=== PATIENT | male | born 1940 | race Caucasian/White ===

== ENCOUNTER 2018-01-29 22:29 | Inpatient (IN) | payer MEDICARE, OTHER ==
[~2018-01-29] VITALS: Ht 185.4 cm; Wt 83.0 kg
[~2018-01-29 22:29] MED LIST: ATOR20TA66 PO; CLOP75TA15 PO; LISI10TA4 PO; METO-395 PO
[2018-01-29] MEDS ORDERED: normal saline 1000ML IV soln IVB ONE (23:00)
[2018-01-29 23:38] LABS: BASOPHILS # (AUTO) 0.1 X10'3 (0-0.2); BASOPHILS % (AUTO) 0.9 % (0-1); EOSINOPHILS % (AUTO) 0.1 % (0-6); HEMATOCRIT 43.5 % (42.0-52.0); HEMOGLOBIN 14.2 g/dl (14.0-17.9); LYMPHOCYTES # (AUTO) 1.5 X10'3 (1.1-4.8); LYMPHOCYTES % (AUTO) 19.6 % (21-51); MEAN CORPUSCULAR HEMOGLOBIN 26.8 PG (27.0-31.0); MEAN CORPUSCULAR HGB CONC 32.5 % (33.0-36.5); MEAN CORPUSCULAR VOLUME 82.4 FL (78-98); MEAN PLATELET VOLUME 7.8 FL (7.4-10.4); MONOCYTES # (AUTO) 0.6 X10'3 (0-0.9); MONOCYTES % (AUTO) 7.1 % (2-12); NEUTROPHILS # (AUTO) 5.6 X10'3 (1.8-7.7); NEUTROPHILS % (AUTO) 72.3 % (42-75); PLATELET COUNT 212 X10'3 (140-440); RED BLOOD COUNT 5.28 X10'6 (4.70-6.10); RED CELL DISTRIBUTION WIDTH 15.7 % (11.5-14.5); WHITE BLOOD COUNT 7.8 X10'3 (4.5-11.0)
[2018-01-29 23:48] LABS: INR 1.1 INR; PARTIAL THROMBOPLASTIN TIME 29 SECONDS (22-32); PROTHROMBIN TIME 11.3 SECONDS (9.0-12.0)
[2018-01-29 23:56] LABS: ALANINE AMINOTRANSFERASE 17 U/L (12-78); ALBUMIN 3.7 G/DL (3.4-5.0); ALKALINE PHOSPHATASE 75 IU/L (46-116); ANION GAP 10 (8-16); CHLORIDE 98 MMOL/L (99-107); CREATININE 1.81 MG/DL (0.60-1.10); LACTIC SEPSIS 1.1 MMOL/L (0.4-2.0); POTASSIUM 4.4 MMOL/L (3.5-5.1); SODIUM 136 MMOL/L (135-145); TOTAL CARBON DIOXIDE 27.8 MMOL/L (24-32); eGFR 37 ML/MIN
[2018-01-30 00:03] LABS: CREATINE KINASE 303 U/L (39-308); ETHANOL < 0.010 GM/DL (0.0-0.010)
[2018-01-30 00:08] LABS: ALBUMIN/GLOBULIN RATIO 0.6 (1.1-1.5); AMMONIA < 10 UMOL/L (11-32); ASPARTATE AMINO TRANSFERASE 27 U/L (10-37); BILIRUBIN,TOTAL 1.4 MG/DL (0.1-1.0); BLOOD UREA NITROGEN 25 MG/DL (7-18); BUN/CREATININE RATIO 13.8 (5.4-32.0); CALCIUM 9.4 MG/DL (8.5-10.1); GLUCOSE 118 MG/DL (70-104); PHOSPHORUS 3.2 MG/DL (2.3-4.5); TOTAL PROTEIN 9.9 G/DL (6.4-8.2)
[2018-01-30 00:09] LABS: ACETAMINOPHEN < 2.0 UG/ML (10-30)
[2018-01-30 01:21] LABS: CLARITY,URINE CLEAR (Clear); COLOR,URINE YELLOW (Yellow); GLUCOSE, URINE NEGATIVE (Neg); KETONES,URINE NEGATIVE (Neg); LEUKOCYTE ESTERASE ,URINE NEGATIVE (Neg); NITRITES, URINE NEGATIVE (Neg); OCCULT BLOOD,URINE TRACE-INTACT (Neg); PROTEIN,URINE 30 mg/dl (Neg); UROBILINOGEN,URINE 0.2 E.U/dL (0.2-1.0)
[2018-01-30 01:28] LABS: UA COLLECTION TYPE CLN CATCH MIDSTREAM
[2018-01-30 01:31] LABS: BACTERIA,URINE NONE SEEN /HPF (Neg); RBC,URINE 0-2 /HPF (0-2); SQUAMOUS EPITHELIAL CELL,UR NONE SEEN /LPF (FEW); URINE AMPHETAMINE SCREEN NEGATIVE (Neg); URINE BARBITUATE SCREEN NEGATIVE (Neg); URINE BENZODIAZEPINES SCREEN NEGATIVE (Neg); URINE CANNABINOID SCREEN NEGATIVE (Neg); URINE COCAINE SCREEN NEGATIVE (Neg); URINE METHADONE SCREEN NEGATIVE (Neg); URINE OPIATE SCREEN NEGATIVE (Neg); URINE PHENCYCLIDINE SCREEN NEGATIVE (Neg); WBC,URINE NONE SEEN /HPF (0-4)
[2018-01-30] MEDS ORDERED: ASPI-1264 PO (02:22)
[2018-01-30] MEDS ORDERED: levoFLOXACIN-Levaquin 750MG/D5 150 ML IV STA (03:19)
[2018-01-30] MEDS ORDERED: magnesium hydroxide 30ml (MOM) UD suspension PO PRN (03:25)
[2018-01-30] MEDS ORDERED: ondansetron/PF 4mg/2ml inj IV PRN (03:25)
[2018-01-30] MEDS ORDERED: mag hydrox/Alum hydrox/simeth 30ml oral suspension PO PRN (03:25)
[2018-01-30] MEDS ORDERED: acetaminophen 325mg tablet PO PRN (03:25)
[2018-01-30] MEDS ORDERED: docusate sod 100mg capsule PO PRN (03:25)
[2018-01-30 07:30] VITALS: BP 139/86
[2018-01-30] MEDS: aspirin 325mg tablet PO SCH (09:05)
[2018-01-30 09:14] LABS: C DIFF ANTIGEN NEGATIVE (NEGATIVE); C DIFF SPECIMEN=DIARRHEA? ACCEPTABLE; C DIFFICILE TOXINS A&B NEGATIVE (Neg)
[2018-01-30 09:32] LABS: OCCULT BLOOD STOOL NEGATIVE (Neg)
[2018-01-30 10:00] VITALS: BP 126/76
[2018-01-30 15:20] VITALS: BP 165/95
[2018-01-30 16:23] VITALS: BP 123/88
[2018-01-30 18:00] VITALS: BP 128/69
[2018-01-30 22:00] VITALS: BP 136/78
[2018-01-31 06:00] VITALS: BP 147/86
[2018-01-31] MEDS: aspirin 325mg tablet PO SCH (08:24)
[2018-01-31 08:37] LABS: BASOPHILS % (AUTO) 0.7 % (0-1); EOSINOPHILS % (AUTO) 0.1 % (0-6); HEMATOCRIT 41.7 % (42.0-52.0); HEMOGLOBIN 13.6 g/dl (14.0-17.9); LYMPHOCYTES # (AUTO) 1.5 X10'3 (1.1-4.8); LYMPHOCYTES % (AUTO) 20.9 % (21-51); MEAN CORPUSCULAR HGB CONC 32.7 % (33.0-36.5); MEAN CORPUSCULAR VOLUME 82.5 FL (78-98); MEAN PLATELET VOLUME 8.3 FL (7.4-10.4); MONOCYTES # (AUTO) 0.6 X10'3 (0-0.9); MONOCYTES % (AUTO) 7.9 % (2-12); NEUTROPHILS # (AUTO) 4.9 X10'3 (1.8-7.7); NEUTROPHILS % (AUTO) 70.4 % (42-75); PLATELET COUNT 204 X10'3 (140-440); RED BLOOD COUNT 5.06 X10'6 (4.70-6.10); RED CELL DISTRIBUTION WIDTH 15.4 % (11.5-14.5)
[2018-01-31 08:41] LABS: ALBUMIN 3.1 G/DL (3.4-5.0); ANION GAP 9 (8-16); BLOOD UREA NITROGEN 25 MG/DL (7-18); BUN/CREATININE RATIO 15.6 (5.4-32.0); CALCIUM 9.2 MG/DL (8.5-10.1); CHLORIDE 98 MMOL/L (99-107); POTASSIUM 4.1 MMOL/L (3.5-5.1); SODIUM 134 MMOL/L (135-145); TOTAL CARBON DIOXIDE 26.9 MMOL/L (24-32); eGFR 42 ML/MIN
[2018-01-31 08:54] LABS: GLUCOSE 129 MG/DL (70-104)
[2018-01-31 10:00] VITALS: BP 145/74
[2018-01-31 18:00] VITALS: BP 154/84
[2018-01-31 22:00] VITALS: BP 144/81
[2018-02-01] MEDS: acetaminophen 325mg tablet PO PRN ×2 (02:21→18:58)
[2018-02-01 06:30] VITALS: BP 128/78
[2018-02-01 07:03] LABS: ANION GAP 13 (8-16); BLOOD UREA NITROGEN 31 MG/DL (7-18); BUN/CREATININE RATIO 19.7 (5.4-32.0); CALCIUM 9.2 MG/DL (8.5-10.1); CHLORIDE 99 MMOL/L (99-107); CREATININE 1.57 MG/DL (0.60-1.10); POTASSIUM 4.1 MMOL/L (3.5-5.1); SODIUM 134 MMOL/L (135-145); TOTAL CARBON DIOXIDE 22.3 MMOL/L (24-32); eGFR 43 ML/MIN
[2018-02-01 07:04] LABS: BASOPHILS % (AUTO) 0.7 % (0-1); EOSINOPHILS % (AUTO) 0.9 % (0-6); HEMATOCRIT 41.2 % (42.0-52.0); HEMOGLOBIN 13.5 g/dl (14.0-17.9); LYMPHOCYTES # (AUTO) 1.5 X10'3 (1.1-4.8); LYMPHOCYTES % (AUTO) 28.7 % (21-51); MEAN CORPUSCULAR HGB CONC 32.8 % (33.0-36.5); MEAN CORPUSCULAR VOLUME 82.4 FL (78-98); MEAN PLATELET VOLUME 8.8 FL (7.4-10.4); MONOCYTES # (AUTO) 0.5 X10'3 (0-0.9); MONOCYTES % (AUTO) 9.9 % (2-12); NEUTROPHILS # (AUTO) 3.1 X10'3 (1.8-7.7); NEUTROPHILS % (AUTO) 59.8 % (42-75); PLATELET COUNT 204 X10'3 (140-440); RED CELL DISTRIBUTION WIDTH 15.2 % (11.5-14.5); WHITE BLOOD COUNT 5.2 X10'3 (4.5-11.0)
[2018-02-01 07:05] LABS: GLUCOSE 117 MG/DL (70-104)
[2018-02-01] MEDS: aspirin 325mg tablet PO SCH (07:46)
[2018-02-01 11:06] VITALS: BP_SYST 116; BP_SYST 138; BP_DIAS 75; BP_DIAS 99
[2018-02-01 18:00] VITALS: BP 157/88
[2018-02-01 22:00] VITALS: BP 138/75
[2018-02-02] MEDS: acetaminophen 325mg tablet PO PRN (05:05)
[2018-02-02 05:31] LABS: BASOPHILS % (AUTO) 0.4 % (0-1); EOSINOPHILS # (AUTO) 0.1 X10'3 (0-0.9); HEMOGLOBIN 13.1 g/dl (14.0-17.9); LYMPHOCYTES # (AUTO) 1.1 X10'3 (1.1-4.8); LYMPHOCYTES % (AUTO) 23.8 % (21-51); MEAN CORPUSCULAR HEMOGLOBIN 26.9 PG (27.0-31.0); MEAN CORPUSCULAR HGB CONC 32.7 % (33.0-36.5); MEAN CORPUSCULAR VOLUME 82.3 FL (78-98); MEAN PLATELET VOLUME 8.8 FL (7.4-10.4); MONOCYTES # (AUTO) 0.5 X10'3 (0-0.9); MONOCYTES % (AUTO) 11.2 % (2-12); NEUTROPHILS % (AUTO) 61.6 % (42-75); PLATELET COUNT 221 X10'3 (140-440); RED BLOOD COUNT 4.86 X10'6 (4.70-6.10); RED CELL DISTRIBUTION WIDTH 15.1 % (11.5-14.5); WHITE BLOOD COUNT 4.8 X10'3 (4.5-11.0)
[2018-02-02 05:35] LABS: ALBUMIN 2.9 G/DL (3.4-5.0); ANION GAP 12 (8-16); BLOOD UREA NITROGEN 33 MG/DL (7-18); BUN/CREATININE RATIO 23.6 (5.4-32.0); CALCIUM 8.8 MG/DL (8.5-10.1); CHLORIDE 100 MMOL/L (99-107); GLUCOSE 123 MG/DL (70-104); POTASSIUM 3.7 MMOL/L (3.5-5.1); SODIUM 135 MMOL/L (135-145); TOTAL CARBON DIOXIDE 22.6 MMOL/L (24-32); eGFR 49 ML/MIN
[2018-02-02 07:20] VITALS: BP 106/70
[2018-02-02] MEDS: aspirin 325mg tablet PO SCH (08:45)
== END 2018-02-02 12:20 | disposition home health service (06) | DRG 683 ==
LOC: ER 22:29 → ED HOLD 01-30 03:25 → ORTHO 4S 01-30 07:40
PROVIDERS: ADMIT Internal Medicine; ATTEND Internal Medicine
DX: N17.9 Acute kidney failure, unspecified (principal); G93.40 Encephalopathy, unspecified; B34.9 Viral infection, unspecified; K70.30 Alcoholic cirrhosis of liver without ascites; N18.3 Chronic kidney disease, stage 3 (moderate); E78.5 Hyperlipidemia, unspecified; E03.9 Hypothyroidism, unspecified; E86.0 Dehydration; F03.90 Unspecified dementia, unspecified severity, without behavioral disturbance, psychotic disturbance, mood disturbance, and anxiety; I34.0 Nonrheumatic mitral (valve) insufficiency; I07.1 Rheumatic tricuspid insufficiency; I12.9 Hypertensive chronic kidney disease with stage 1 through stage 4 chronic kidney disease, or unspecified chronic kidney disease; I25.10 Atherosclerotic heart disease of native coronary artery without angina pectoris; K52.9 Noninfective gastroenteritis and colitis, unspecified; Z95.5 Presence of coronary angioplasty implant and graft; Z79.82 Long term (current) use of aspirin; Z86.73 Personal history of transient ischemic attack (TIA), and cerebral infarction without residual deficits; Z87.11 Personal history of peptic ulcer disease
CPT/HCPCS: 36415; 70450; 71045; 80048; 80053; 80305; 80320; 80329; 81001; 82140; 82272; 82550; 82948; 83605; 83735; 84100; 84439; 84443; 84480; 84484; 85025; 85610; 85730; 87040; 87045; 87046; 87070; 87324; 87449; 89055; 93005; 93306; 96360; 97110; 97116; 97161; 97530; 99285; A4353; A6213; J1956

== ENCOUNTER 2018-02-06 12:11 | Outpatient (CLI) | payer MEDICARE, OTHER ==
[~2018-02-06 12:11] MED LIST changes: +ASPI-1264 PO; -ATOR20TA66 PO; -CLOP75TA15 PO; -LISI10TA4 PO; -METO-395 PO
== END 2018-02-06 23:59 | disposition home or self-care (01) ==
LOC: CARD DIAG 12:11
DX: I65.23 Occlusion and stenosis of bilateral carotid arteries (principal); I10 Essential (primary) hypertension; Z79.82 Long term (current) use of aspirin; Z72.89 Other problems related to lifestyle; F17.200 Nicotine dependence, unspecified, uncomplicated; Z86.73 Personal history of transient ischemic attack (TIA), and cerebral infarction without residual deficits
CPT/HCPCS: 93880

== ENCOUNTER 2018-11-24 13:46 | Day surgery (SDC) | payer MEDICARE, OTHER ==
[~2018-11-24] VITALS: Ht 180.3 cm; Wt 77.1 kg
[2018-11-24] VITALS (7 sets, daily range): BP systolic 122–143; BP diastolic 70–88
[~2018-11-24 13:46] MED LIST changes: +ACET-2119 PO; +AMLO2.5T2 PO; -ASPI-1264 PO; +ATOR10TA70 PO; +BISA10SU60 RC; +CIPR-260 PO; +CLOP75TA15 PO; +FOLI1TAB16 PO; +HYDR-4353 PO; +MAG355OR18 PO; +MAGN400O6 PO; +MULT-933 PO; +NA P133E4 RC; +RIVA15TA PO; +THIA100T73 PO; +acetaminophen 325mg tablet PO ONE; +cefazolin/dext.iso 2gm/100 ML IV ONE; +celeCOXIB 100mg capsule PO ONE; +famotidine 20mg tablet PO ONE; +gabapentin 300mg capsule PO ONE; +metoclopramide 5 mg/ml inj IV ONE; +oxyCODONE SR 10mg (sust. release) tab -2 tabs (20mg) PO ONE; +ringers solution, lacted 1,000 ML IV SCH; +tranexamic acid inj. 1,000 MG in normal saline 100 ML IV ONE; +vancomycin inj 1,500 MG in normal saline 300ml IV soln IV ONE
[2018-11-24] MEDS ORDERED: ringers solution, lacted 1,000 ML IV SCH (14:11)
[2018-11-24] MEDS ORDERED: hydrALAZINE 20mg/ml inj. IV PRN (14:15)
[2018-11-24] MEDS ORDERED: ondansetron/PF 4mg/2ml inj IV PRN (14:15)
[2018-11-24] MEDS ORDERED: labetalol 20mg/4ml (5mg/ml) syringe IV PRN (14:15)
[2018-11-24] MEDS ORDERED: fentaNYL/PF 50MCG/1 ML 2ML syringe IV PRN ×2 (14:15)
[2018-11-24] MEDS ORDERED: morphine 4 MG/ML inj SYRINge IV PRN ×2 (14:15)
[2018-11-24] MEDS ORDERED: fentaNYL/PF 50MCG/1 ML 2ML syringe ONE ×2 (14:19→16:03)
[2018-11-24] MEDS ORDERED: etomidate 2mg/ml inj. ONE (14:20)
[2018-11-24] MEDS ORDERED: midazolam 2 mg/2 ml injection ONE ×2 (14:20→16:03)
[2018-11-24] MEDS ORDERED: vancomycin 1,000mg inj ONE (14:53)
[2018-11-24] MEDS ORDERED: LIDOcaine 1% 30ml preserv. free vial ONE (15:33)
[2018-11-24 15:40] LABS: BASOPHILS # (AUTO) 0.1 X10'3 (0-0.2); EOSINOPHILS # (AUTO) 0.2 X10'3 (0-0.9); EOSINOPHILS % (AUTO) 3.4 % (0-6); LYMPHOCYTES # (AUTO) 1.7 X10'3 (1.1-4.8); LYMPHOCYTES % (AUTO) 27.9 % (21-51); MEAN CORPUSCULAR HEMOGLOBIN 27.1 PG (27.0-31.0); MEAN CORPUSCULAR HGB CONC 33.2 g/dL (33.0-36.5); MEAN CORPUSCULAR VOLUME 81.8 FL (78-98); MEAN PLATELET VOLUME 7.6 FL (7.4-10.4); MONOCYTES # (AUTO) 0.5 X10'3 (0-0.9); MONOCYTES % (AUTO) 7.6 % (2-12); NEUTROPHILS # (AUTO) 3.7 X10'3 (1.8-7.7); NEUTROPHILS % (AUTO) 60.1 % (42-75); PRE OP HEMATOCRIT 28.4 % (42.0-52.0); PRE OP PLATELET COUNT 298 X10'3 (140-440); RED BLOOD COUNT 3.48 X10'6 (4.70-6.10); RED CELL DISTRIBUTION WIDTH 16.7 % (11.5-14.5)
[2018-11-24 15:49] LABS: PRE OP HEMOGLOBIN 9.4 g/dL (14.0-17.9)
[2018-11-24 15:51] LABS: PRE OP INR 1.2 INR; PRE OP PROTIME 12.1 SECONDS (9.0-12.0)
[2018-11-24 15:56] LABS: ALBUMIN 3.6 G/DL (3.4-5.0); ALBUMIN/GLOBULIN RATIO 0.7 (1.1-1.5); ALKALINE PHOSPHATASE 119 IU/L (46-116); BLOOD UREA NITROGEN 27 MG/DL (7-18); BUN/CREATININE RATIO 19.7 (5.4-32.0); CALCIUM 9.5 MG/DL (8.5-10.1); CHLORIDE 107 MMOL/L (99-107); CREATININE 1.37 MG/DL (0.60-1.10); PRE OP ALT 20 U/L (30-65); PRE OP ANION GAP 7 (8-16); PRE OP AST 20 U/L (10-37); PRE OP BILIRUB, TOTAL 0.4 MG/DL (0.0-1.0); PRE OP GLUCOSE 87 MG/DL (70-104); PRE OP POTASSIUM 4.4 MMOL/L (3.4-5.1); PRE OP SODIUM 141 MMOL/L (135-145); TOTAL CARBON DIOXIDE 26.8 MMOL/L (24-32); TOTAL PROTEIN 8.8 G/DL (6.4-8.2); eGFR 50 ML/MIN
[2018-11-24] MEDS ORDERED: ketamine 50mg/5ml syringe ONE (16:08)
--- NOTE | 2018-11-24 16:33 | NUR ---
Received from OR via , accompanied by Anesthesiologist DR GAN and report given by Anesthesiolgist. AWAKENS TO VOICE. VITALS STABLE. DRESSING DI. WHITNEY PAIN.
--- NOTE | 2018-11-24 17:43 | NUR ---
AWAKE AND ORIENTED. VITALS STABLE. DRESSING DI. WHITNEY PAIN. BACK TO [facility] WITH [facility] AT THIS TIME.
== END 2018-11-24 17:43 | disposition home or self-care (01) ==
LOC: PAS 13:46
PROVIDERS: ATTEND Orthopaedic Surgery
DX: T81.31XA Disruption of external operation (surgical) wound, not elsewhere classified, initial encounter (principal); Z96.641 Presence of right artificial hip joint; Y83.8 Other surgical procedures as the cause of abnormal reaction of the patient, or of later complication, without mention of misadventure at the time of the procedure; Z79.01 Long term (current) use of anticoagulants; Z79.899 Other long term (current) drug therapy; F17.210 Nicotine dependence, cigarettes, uncomplicated; I10 Essential (primary) hypertension; Z86.73 Personal history of transient ischemic attack (TIA), and cerebral infarction without residual deficits
CPT/HCPCS: 11043; 36415; 80053; 85025; 85610; 85730; A6454; J2001; J2250; J2765; J3010; J3370; J7120; A4618; A7000